=== PATIENT | male | born 1970 | race Caucasian/White ===

== ENCOUNTER 2021-12-21 19:39 | Emergency (ER) | payer OTHER | END 2021-12-21 23:58 | disposition home or self-care (01) | LOC: FER 19:39 | DX: I83.892 Varicose veins of left lower extremity with other complications (principal); E11.9 Type 2 diabetes mellitus without complications; Z79.84 Long term (current) use of oral hypoglycemic drugs; Z28.310 Unvaccinated for COVID-19 | CPT/HCPCS: 99283 ==